=== PATIENT | male | born 1960 | race Caucasian/White ===

== ENCOUNTER 2021-12-25 19:30 | Inpatient (IN) | payer OTHER ==
[~2021-12-25] VITALS: Ht 180.3 cm; Wt 74.8 kg
[2021-12-25 19:35] VITALS: BP_SYST 133
[2021-12-25] MEDS ORDERED: MORPHINE 4 MG INJ. 4 MG/ML VIAL IVP ONE (19:41)
[2021-12-25 20:14] LABS: BASOPHILS # (AUTO) 0.1 K/uL (0.0-0.2); BASOPHILS % (AUTO) 1.2 % (0.0-2.0); HEMATOCRIT 35.9 % (36-54); HEMOGLOBIN 12.6 g/dL (14.0-18.0); LYMPHOCYTES # (AUTO) 0.6 K/uL (1.0-5.5); LYMPHOCYTES % (AUTO) 9.4 % (20.5-51.5); MEAN CORPUSCULAR HEMOGLOBIN 30 pg (27-31); MEAN CORPUSCULAR HGB CONC 35 % (32-36); MEAN CORPUSCULAR VOLUME 86 fL (79.0-98.0); MONOCYTES # (AUTO) 0.1 K/uL (0.0-1.0); MONOCYTES % (AUTO) 2.1 % (1.7-9.3); NEUTROPHILS # (AUTO) 5.2 K/uL (1.8-7.7); NEUTROPHILS % (AUTO) 87.3 % (40.0-70.0); PLATELET COUNT (AUTO) 280 K/uL (130-430); RED BLOOD CELL COUNT(AUTO) 4.16 MIL/uL (4.2-6.2); RED CELL DISTRIBUTION WIDTH 14.4 % (9.0-15.0); WHITE BLOOD COUNT (AUTO) 5.9 K/uL (4.8-10.8)
[2021-12-25 20:22] LABS: ANION GAP 15 (5-15); CALCIUM 8.9 mg/dL (8.4-11.0); CHLORIDE 96 mmol/L (98-107); GLUCOSE 134 mg/dL (70-99); POTASSIUM 3.3 mmol/L (3.5-5.1); SODIUM SERUM 133 mmol/L (136-145); UREA NITROGEN, BLOOD 26 mg/dL (8-21)
[2021-12-25 20:27] LABS: GFR AFRICAN AMERICAN 97 mL/min (>90)
[2021-12-25 20:31] LABS: ALANINE AMINOTRANSFERASE 38 U/L (12-78); ASPARTATE AMINOTRANSFERASE 33 U/L (10-37); TOTAL BILIRUBIN 1.3 mg/dL (0.0-1.0)
[2021-12-25] MEDS ORDERED: ASPIRIN 325 MG TABLET PO ONE (21:00)
[2021-12-25] MEDS ORDERED: ENOXAPARIN SODIUM 80 MG/0.8 ML SYRINGE SUBCUT ONE (21:00)
[2021-12-25] MEDS ORDERED: NITROGLYCERIN 1 INCH (GM) OINT. TP ONE (23:30)
[2021-12-26 05:32] VITALS: BP_SYST 183
[2021-12-26 07:00] VITALS: BP_SYST 164
[2021-12-26 08:00] VITALS: BP_SYST 164
[2021-12-26] MEDS ORDERED: *LOVENOX 1MG/KG Q12H/PHARMACY XX ONE (08:45)
[2021-12-26] MEDS: ATORVASTATIN 20 MG TABLET PO SCH (09:23)
[2021-12-26] MEDS: ASPIRIN 81 MG TAB.CHEW PO SCH (09:23)
[2021-12-26] MEDS: ENOXAPARIN SODIUM 80 MG/0.8 ML SYRINGE SUBCUT SCH ×2 (09:24→20:44)
[2021-12-26 12:09] VITALS: BP_SYST 143
[2021-12-26 16:23] VITALS: BP_SYST 117
[2021-12-26 17:48] LABS: BARBITURATE, URINE NEGATIVE (NEG <=200); BENZODIAZEPINE, URINE NEGATIVE (NEG <=150); CANNABINOID, URINE NEGATIVE (NEG <=50); COCAINE, URINE NEGATIVE (NEG <=150); METHAMPHETAMINES SCREEN,URINE NEGATIVE (NEG <=500); OPIATE, URINE POSITIVE (NEG <=100); PHENCYCLIDINE SCREEN,URINE NEGATIVE (NEG <=25); UR TRICYCLIC ANTIDEPRESSANTS NEGATIVE (NEG <=300); URINE AMPHETAMINE NEGATIVE (NEG <=500); URINE METHADONE NEGATIVE (NEG <=200); URINE OXYCODONE SCREEN NEGATIVE (NEG <=100); URINE PROPOXYPHENE SCREEN NEGATIVE (NEG <=300)
[2021-12-26 20:00] VITALS: BP_SYST 140
[2021-12-27] VITALS (7 sets, daily range): BP systolic 113–139
[2021-12-27 07:18] LABS: CALCIUM 8.2 mg/dL (8.4-11.0); CREATININE 0.72 mg/dL (0.55-1.30); POTASSIUM 3.4 mmol/L (3.5-5.1)
[2021-12-27 07:37] LABS: THYROID STIMULATING HORMONE 2.09 uIu/mL (0.36-3.74)
[2021-12-27] MEDS: ATORVASTATIN 20 MG TABLET PO SCH (08:07)
[2021-12-27] MEDS: ASPIRIN 81 MG TAB.CHEW PO SCH (08:08)
[2021-12-27] MEDS: ENOXAPARIN SODIUM 80 MG/0.8 ML SYRINGE SUBCUT SCH (08:10)
[2021-12-27] MEDS ORDERED: CLOP75TA32 PO (17:09)
[2021-12-27] MEDS ORDERED: ASPI-859 PO (17:10)
== END 2021-12-27 17:28 | disposition home or self-care (01) | DRG 293 ==
LOC: SED 19:30 → STU 12-26 04:28
PROVIDERS: ADMIT Family Medicine; ATTEND Family Medicine
DX: I11.0 Hypertensive heart disease with heart failure (principal); J43.9 Emphysema, unspecified; I50.20 Unspecified systolic (congestive) heart failure; M54.9 Dorsalgia, unspecified; G89.29 Other chronic pain; Z20.822 Contact with and (suspected) exposure to COVID-19; I25.5 Ischemic cardiomyopathy; F17.200 Nicotine dependence, unspecified, uncomplicated; I25.2 Old myocardial infarction
CPT/HCPCS: 36415; 71045; 80053; 80061; 80307; 83735; 83880; 84443; 84484; 85025; 85379; 93005; 93306; 96372; 96374; 99291; G0378; J1650; J2270